=== PATIENT | female | born 1985 | race Caucasian/White ===

== ENCOUNTER → 2024-05-09 17:18 | Outpatient (REF) | payer BC, SELFPAY ==
[2024-05-14 20:56] LABS: HPV, High Risk Not Detected; HPV, High Risk Source Anal
== END ==
LOC: CLAB 17:18
PROVIDERS: ATTENDING PHYSICIAN Physician Assistant
DX: K64.2 Third degree hemorrhoids (principal)
CPT/HCPCS: 87624; 88112

== ENCOUNTER → 2024-07-31 13:26 | Outpatient (REF) | payer BC, SELFPAY | LOC: CLAB 13:26 | PROVIDERS: ATTENDING PHYSICIAN Surgery | DX: K62.9 Disease of anus and rectum, unspecified (principal) | CPT/HCPCS: 88305 ==